=== PATIENT | female | born 1990 | race Caucasian/White ===

== ENCOUNTER 2017-12-11 12:21 | Day surgery (SDC) | END 2017-12-11 18:10 | disposition home or self-care (01) ==

== ENCOUNTER 2017-12-12 15:37 | Observation (INO) | END 2017-12-14 19:20 | disposition home or self-care (01) ==

== ENCOUNTER 2018-04-02 10:23 | Day surgery (SDC) | payer OTHER ==
[2018-04-02] VITALS (22 sets, daily range): BP systolic 89–115; BP diastolic 48–77; PULSE 60–92; RESP 8–24; Ht 160 cm; Wt 51.2 kg
[~2018-04-02] VITALS: Ht 160 cm; Wt 51.2 kg
[~2018-04-02 10:23] MED LIST: CEFAZOLIN 2 GM/50 ML (PMX) 50 ML IVPB ONE; LEVO750T25 PO; OXYC-209 PO; OXYC-279 PO; SOD CHLORIDE 0.9% 1,000 ML IV SCH
[2018-04-02] MEDS ORDERED: ACET-141 PO (10:54)
--- NOTE | 2018-04-02 13:27 | PREAC ---
Date/Time of Note Date/Time of Note DATE: 04/02/18 TIME: 13: Anesthesia Eval and Record Evaluation Time Pre-Procedure Interview DATE: 04/02/18 TIME: 13: Age 28 Sex female NPO: 8 hrs Preoperative diagnosis incisional hernia Planned procedure laproscopic insicional hernia repair Past Medical History Past Medical History: Includes Hepatic: Other ( alcohol syndrome ) Surgery & Anesthesia Issues No known issue Meds Anticoagulation: No Beta Hemal within 24 hr: No Reason Beta Hemal not given: Pt. not on B-Hemal Reported Medications Acetaminophen* (Acetaminophen*) 500 MG Extra Strength Tablet, 500 MG PO Q4H PRN for PAIN AND OR ELEVATED TEMP, TAB 04/02/18 Discontinued Scripts Levofloxacin* (Levaquin*) 750 Mg Tablet, 750 MG PO DAILY for 5 Days, TAB Prov:ANETA GLOVER 12/14/17 Oxycodone HCl/Acetaminophen (Percocet 5-325 mg Tablet) 1 Each Tablet, 1 EACH PO Q8, #10 TAB Prov:ANETA GLOVER 12/14/17 Oxycodone HCl/Acetaminophen (Percocet 10-325 mg Tablet) 1 Each Tablet, 1 EACH PO Q6 PRN for PAIN LEVEL 6-10, #20 TAB Prov:DAVE IVEY MD 12/12/17 Current Medications Sodium Chloride 1,000 ml @ 75 mls/hr [id number] IV Last administered on 04/02/18at 09:00; Admin Dose 75 MLS/HR; Start 04/02/18 at 09:00; Stop 04/02/18 at 22:19 Meds reviewed: Yes Allergies Coded Allergies: No Known Drug Allergy (Unverified Allergy, Unknown, 12/12/17) Allergies Reviewed: Yes Labs/Studies Labs Reviewed: Reviewed by anesthesiologist test: Negative Pre-procedure Exam Last vitals Vital Signs Date Temp Pulse Resp B/P (MAP) Pulse Ox O2 O2 Flow FiO2 Time Delivery Rate 04/02/18 98.4 74 18 110/73 100 Room Air 10:50 (85) Airway: Adequate mouth opening, Adequate thyromental dist Mallampati: Mallampati I Teeth: Normal Lung: Normal Heart: Normal ASA Physical Status ASA physical status: 2 Emergency: None Pre-operative Attestations Prior to commencing anesthesia and surgery, the patient was re-evaluated, there was verification of: *The patient's identity *The results of appropriate recent lab work and preoperative vital signs *The above evaluation not changing prior to induction *Anesthetic plan, risk benefits, alternative and complications discussed with patient/family; questions answered; patient/family understands, accepts and wishes to proceed. GEORGE PRESSLEY DO Apr 02, 2018 13:27
[2018-04-02] MEDS ORDERED: MEPERIDINE 25 MG INJ IV PRN (13:30)
[2018-04-02] MEDS ORDERED: ONDANSETRON 4 MG INJ IV PRN (13:30)
[2018-04-02] MEDS ORDERED: HYDROmorphONE 1 MG/5 ML IV SYRINGE IV PRN (13:30)
[2018-04-02] MEDS ORDERED: MIDAZOLAM 1 MG/ML 2 ML INJ ONE (13:44)
[2018-04-02] MEDS ORDERED: POLYMYXIN/BACITRACIN 1L IRRIG ONE (13:44)
[2018-04-02] MEDS ORDERED: FENTAnyl 50 MCG/ML VIAL ONE ×2 (13:47→14:46)
[2018-04-02] MEDS ORDERED: LIDOCAINE 2% (SDV) 5 ML INJ ONE (13:47)
[2018-04-02] MEDS ORDERED: ROCURONIUM 50 MG INJ ONE (13:47)
[2018-04-02] MEDS ORDERED: PROPOFOL 20 ML ONE (13:47)
[2018-04-02] MEDS ORDERED: ROPIVACAINE 0.5 % 30 ML VIAL ONE (13:53)
[2018-04-02] MEDS ORDERED: DEXAMETHASONE 4 MG/ML 5 ML INJ ONE (14:05)
[2018-04-02] MEDS ORDERED: ONDANSETRON 4 MG INJ ONE (14:05)
[2018-04-02] MEDS ORDERED: FAMOTIDINE 20 MG INJ ONE (14:05)
[2018-04-02] MEDS ORDERED: CEFAZOLIN 1 GM INJ ONE (14:05)
[2018-04-02] MEDS ORDERED: NEOSTIGMINE 3 MG/3 ML SYRINGE ONE (14:31)
[2018-04-02] MEDS ORDERED: GLYCOPYRROLATE 0.4 MG INJ ONE (14:31)
--- NOTE | 2018-04-02 14:40 | OPR ---
Date/Time of Note Date/Time of Note DATE: 04/02/18 TIME: 14:35 Operative Report Procedure Date: Apr 02, 2018 Preoperative Diagnosis incarcerated incisional hernia and ventral hernia Postoperative Diagnosis same Operation/Procedure Performed 1. laparoscopic incarcerated incisional hernia repair cpt code 62943 2. laparoscopic ventral hernia repair cpt code 90509 3. implantation of mesh ventralight ST 15 x 20 cm cpt code 33992 4. laparoscopic lysis of adhesions Surgeon see signature line Electrical Solderer none Anesthesia Type: general Estimated Blood Loss: 0 - 10 ml's Transfusion none Specimen none Grafts/Implants none Complications none Pt Condition Post Procedure: stable Indications This is a 28-year-old female with symptomatic incarcerated incisional hernia. She requests surgical repair. Risks alternatives benefits and percent were discussed the patient. Patient expresses understanding and consents to the operation. Procedure Description Patient is taken to the OR and prepped and draped in usual sterile fashion. Surgical timeout was performed. IV antibiotics were given. Left upper quadrant 5 mm transverse incision was made with a 15 blade. Using a 5 mm optical trocar optical entry is performed. Pneumoperitoneum is established. Left flank 12 mm optical trochars placed under direct position. Left lower quadrant 5 mm optical trocar was placed under direct visualization. Upon initial inspection there is incarcerated hernia contents. Laparoscopic lysis of adhesions was performed to allow mobilization of the hernia contents. The hernia contents were then fully reduced. The hernia defect is identified. This hernia defect is then closed primarily with interrupted #1 Vicryl using Endo Close and laparoscopic techniques. After multiple sutures were placed another hernia defect in the umbilicus and the ventral area is identified. This hernia defect is small and was repaired with mesh. Underlay mesh with ventral light ST 15 x 620 cm was secured in place with secure strap with approximate 4-5 cm coverage in all directions. There is good hemostasis. All ports were removed under direct position. Skin was closed using skin jeffrey. A tap block was provided by the anesthesiologist. Dry dressings were applied. Marcelina GUTIERREZ Apr 02, 2018 14:40
--- NOTE | 2018-04-02 14:55 | PAC ---
Date/Time of Note Date/Time of Note DATE: 04/02/18 TIME: 14:54 Post-Anesthesia Notes Post-Anesthesia Note Last documented vital signs Vital Signs Date Temp Pulse Resp B/P (MAP) Pulse Ox O2 O2 Flow FiO2 Time Delivery Rate 04/02/18 99 82 18 132/62 100 Room Air 1455 Activity: WNL Respiratory function: WNL Cardiovascular function: WNL Mental status: Baseline Pain reasonably controlled: Yes Hydration appropriate: Yes Nausea/Vomiting absent: Yes GEORGE PRESSLEY DO Apr 02, 2018 14:55
[2018-04-02] MEDS ORDERED: HYDROCODONE/APAP (5/325) TAB PO ONE (15:00)
[2018-04-02] MEDS: HYDROmorphONE 1 MG/5 ML IV SYRINGE IV PRN ×2 (15:02→15:10)
[2018-04-02] MEDS ORDERED: morphine 2 MG INJ IV PRN (17:30)
[2018-04-02] MEDS: HYDROCODONE/APAP (5/325) TAB PO PRN (22:20)
[2018-04-03] VITALS (7 sets, daily range): BP systolic 89–98; BP diastolic 52–61; PULSE 55–88; RESP 18
[2018-04-03] MEDS: HYDROCODONE/APAP (5/325) TAB PO PRN ×4 (05:10→22:29)
[2018-04-03] MEDS ORDERED: SODIUM CHLORIDE 0.45% 500 ML BAG IV* ONE (08:30)
--- NOTE | 2018-04-03 13:44 | PN ---
Date/Time of Note Date/Time of Note DATE: 04/03/18 TIME: 13:43 Assessment/Plan VTE Prophylaxis Risk score (from Nsg)>0 risk: 1 SCD applied (from Nsg): No SCD contraindicated: other Pharmacological prophylaxis: other Lines/Catheters IV Catheter Type (from Nrsg): Saline Lock Assessment/Plan Assessment/Plan s/p lap ventral hernia repair with mesh with pain issues continue care and change to dilaudid Results 24hrs Laboratory Tests Test 04/03/18 07:16 Lab Scanned Report LAB Subjective 24 Hr Interval Summary Free Text/Dictation pain issues will need to stay at least another day Exam/Review of Systems Exam Vitals Vital Signs Date Temp Pulse Resp B/P (MAP) Pulse Ox O2 O2 Flow FiO2 Time Delivery Rate 04/03/18 98.6 55 18 91/61 (71) 98 Room Air 08:07 04/02/18 3.0 14:59 Intake and Output 04/02/18 04/02/18 04/03/18 1515:00 23:00 07:00 IntakeIntake Total 1500 ml 100 ml 120 ml OutputOutput Total 3 ml BalanceBalance 1497 ml 100 ml 120 ml Exam c/d/i Results Results 24hrs Laboratory Tests Test 04/03/18 07:16 Lab Scanned Report LAB Medications Medication Current Medications Morphine Sulfate (morphine) 2 mg Q2H PRN IV SEVERE PAIN LEVEL 7-10; Start 04/02/18 at 17:30 Acetaminophen/ Hydrocodone Bitart ([place] (5/325)) 1 tab Q4H PRN PO MODERATE PAIN LEVEL 4-6 Last administered on 04/03/18at 11:39; Admin Dose 1 TAB; Start 04/02/18 at 17:30 Marcelina GUTIERREZ Apr 03, 2018 13:44
[2018-04-03] MEDS: NS + KCL 20 MEQ 1,000 ML IV SCH ×2 (14:00→18:06)
[2018-04-03] MEDS ORDERED: HYDROmorphONE 0.5 MG/0.5 ML SYG IV PRN (14:00)
[2018-04-03] MEDS ORDERED: ACETAMINOPHEN 500 MG TAB PO PRN (16:00)
[2018-04-03] MEDS ORDERED: ONDANSETRON 4 MG INJ IV PRN (17:30)
--- NOTE | 2018-04-03 17:51 | HP ---
DATE OF ADMISSION: 04/02/2018 CHIEF COMPLAINT AND HISTORY OF PRESENT ILLNESS: The patient is a 28-year-old female well known to me . The patient has alcohol syndrome and was seen by me back in 11/2017 when she was admitted fo r elective laparoscopic cholecystectomy by Dr. Rowley. The patient was doing fine; however developed in carcerated incisional hernia and ventral hernia. The patient was brought into hospital yesterday and underwent surgical repair due to symptomatic incarcerated incisional hernia. The patient postoperat ively has significant pain; therefore the patient is being admitted for further evaluation and manage ment. The patient denies any chest pain. No reported leg pain. No reported headache, dizziness, sy ncope. No history of fever or chills. No history of any vomiting postoperatively. REVIEW OF SYSTEMS: Other than postoperative pain, rest of the systems is unremarkable. 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 ALLERGIES: NONE. PAST SURGICAL HISTORY: As stated above. The patient is status post laparoscopic cholecystectomy. SOCIAL HISTORY: No smoking, no alcohol. FAMILY HISTORY: Noncontributory. PHYSICAL EXAMINATION: GENERAL: Revealed the patient to be awake, alert, fairly oriented. VITAL SIGNS: Temperature 98.6, pulse 55, respiration 18, blood pressure 91/61, asymptomatic, room ai r O2 sat 98%. HEENT: No eye discharge or redness. NECK: No mass. Oropharynx is clear. CHEST: Fairly clear. CARDIOVASCULAR: S1, S2 normal. No murmur. ABDOMEN: The patient is status post incisional hernia repair. She does have postoperative tendernes s. EXTREMITIES: No edema. NEUROLOGIC: The patient is awake, alert, oriented with no gross focal deficit. LABORATORY DATA: Pending. IMPRESSION: 1. Incarcerated incisional hernia and ventral hernia status post laparoscopic incarcerated incisiona l hernia repair as well as laparoscopic ventral hernia repair. 2. alcohol syndrome. 3. Status post laparoscopic cholecystectomy. PLAN: The patient will be admitted on medical floor. The patient will be started on clear liquid di et, will be started on Tylenol, IV Dilaudid and Sarles for pain control. We will use SCD for DVT prop hylaxis. We will add Zofran for nausea, vomiting. Further recommendation will depend on the [facility] l course and recommendation from Dr. Rowley. Dictated By: ANNA DOMINGUEZ MD AB/NTS Conf#: [id number] DID#: [id number] CC: ANSHUL ROWLEY MD;*EndCC*
[2018-04-04 02:18] VITALS: BP 93/53; PULSE 83; RESP 18
[2018-04-04] MEDS: HYDROCODONE/APAP (5/325) TAB PO PRN ×2 (03:37→15:11)
[2018-04-04] MEDS: NS + KCL 20 MEQ 1,000 ML IV SCH ×2 (03:37→13:49)
[2018-04-04 07:30] VITALS: BP 92/50; PULSE 96; RESP 16
[2018-04-04 14:15] VITALS: BP 100/59; PULSE 86; RESP 16
[2018-04-04] MEDS ORDERED: HYDR-3601 PO (15:50)
--- NOTE | 2018-04-04 23:09 | DS ---
Date/Time of Note Date/Time of Note DATE: 04/04/18 TIME: 23:07 Discharge Summary Admission/Discharge Info Admit Date/Time Apr 02, 2018 at 17:11 Discharge Date/Time Apr 04, 2018 at 18:10 Patient Condition: Stable Hx of Present Illness The patient is a 28-year-old female well known to me. The patient has alcohol syndrome and was seen by me back in 11/2017 when she was admitted for elective laparoscopic cholecystectomy by Dr. Rowley. The patient was doing fine; however developed incarcerated incisional hernia and ventral hernia. The patient was brought into hospital yesterday and underwent surgical repair due to symptomatic incarcerated incisional hernia. The patient postoperatively has significant pain; therefore the patient is being admitted for further evaluation and management. The patient denies any chest pain. No reported leg pain. No reported headache, dizziness, syncope. No history of fever or chills. No history of any vomiting postoperatively. Hospital Course 1. Incarcerated incisional hernia and ventral hernia status post laparoscopic incarcerated incisional hernia repair as well as laparoscopic ventral hernia repair by Dr Rowley. 2. alcohol syndrome. 3. Status post laparoscopic cholecystectomy. Home Meds Active Scripts Hydrocodone Bit-Acetaminophen (Hydrocodone Bit-APAP) 5-325MG Tablet, 1 TAB PO Q4H PRN for MODERATE PAIN LEVEL 4-6, #30 TAB Prov:CARINE GUEVARA 04/04/18 Reported Medications Acetaminophen* (Acetaminophen*) 500 MG Extra Strength Tablet, 500 MG PO Q4H PRN for PAIN AND OR ELEVATED TEMP, TAB 04/02/18 Discontinued Scripts Levofloxacin* (Levaquin*) 750 Mg Tablet, 750 MG PO DAILY for 5 Days, TAB Prov:ANETA GLOVER 12/14/17 Oxycodone HCl/Acetaminophen (Percocet 5-325 mg Tablet) 1 Each Tablet, 1 EACH PO Q8, #10 TAB Prov:ANETA GLOVER 12/14/17 Oxycodone HCl/Acetaminophen (Percocet 10-325 mg Tablet) 1 Each Tablet, 1 EACH PO Q6 PRN for PAIN LEVEL 6-10, #20 TAB Prov:DAVE IVEY MD 12/12/17 Follow-up Plan Follow-up with Dr. Rowley in 2 weeks. Primary Care Provider Not On Staff Doctor Time spent on discharge: > 30 minutes Pending Labs Laboratory Tests Test 04/04/18 06:10 White Blood Count 7.4 10^3/ul (4.8-10.8) Red Blood Count 3.38 10^6/ul (4.20-5.40) Hemoglobin 11.2 g/dl (12.0-16.0) Hematocrit 33.0 % (37.0-47.0) Mean Corpuscular Volume 97.6 fl (82.0-101.0) Mean Corpuscular Hemoglobin 33.1 pg (29.0-33.0) Mean Corpuscular Hemoglobin Concent 33.9 g/dl (32.0-37.0) Red Cell Distribution Width 12.0 % (11.5-14.5) Platelet Count 177 10^3/UL (140-415) Mean Platelet Volume 10.1 fl (7.4-10.4) Immature Granulocytes % 0.400 % (0.001-0.429) Neutrophils % 74.6 % (39.0-77.0) Lymphocytes % 13.3 % (15.0-51.0) Monocytes % 9.9 % (0.0-11.0) Eosinophils % 1.4 % (0.0-7.0) Basophils % 0.4 % (0.0-2.0) Nucleated Red Blood Cells % 0.0 /100WBC (0.0-0.0) Immature Granulocytes # 0.030 10^3/ul (0.0-0.031) Neutrophils # 5.5 10^3/ul (1.6-7.5) Lymphocytes # 1.0 10^3/ul (0.8-2.9) Monocytes # 0.7 10^3/ul (0.3-0.9) Eosinophils # 0.1 10^3/ul (0.0-0.5) Basophils # 0.0 10^3/ul (0.0-0.1) Nucleated Red Blood Cells # 0.0 10^3/ul (0.0-0.0) Sodium Level 140 mmol/L (135-144) Potassium Level 3.7 mmol/L (3.5-5.1) Chloride Level 104 mmol/L (97-110) Carbon Dioxide Level 27 mmol/L (21-31) Anion Gap 9 (5-13) Blood Urea Nitrogen 9 mg/dl (7-20) Creatinine 0.39 mg/dl (0.44-1.00) Est Glomerular Filtrat Rate mL/min > 60 mL/min (>60) Glucose Level 94 mg/dl (70-220) Calcium Level 7.8 mg/dl (8.4-10.2) Total Bilirubin 0.1 mg/dl (0.2-1.3) Direct Bilirubin 0.00 mg/dl (0.00-0.20) Indirect Bilirubin 0.1 mg/dl (0-1.1) Aspartate Amino Transf (AST/SGOT) 47 IU/L (15-46) Alanine Aminotransferase (ALT/SGPT) 78 IU/L (13-69) Alkaline Phosphatase 44 IU/L (42-121) Total Protein 6.1 g/dl (6.1-8.1) Albumin 3.2 g/dl (3.3-4.9) Globulin 2.90 g/dl (1.3-3.2) Albumin/Globulin Ratio 1.10 CARINE GUEVARA Apr 04, 2018 23:09
== END 2018-04-04 18:10 | disposition home or self-care (01) ==
LOC: SDS 10:23 → REC 17:11 → UNDOADMIN 17:11 → SDS 17:11 → REC 18:10 → PP2 18:10 → UNDODISIN 04-04 18:10 → SDS 04-04 18:10
PROVIDERS: ATTEND Surgery
DX: G89.18 Other acute postprocedural pain (principal); K43.0 Incisional hernia with obstruction, without gangrene; Q86.0 Fetal alcohol syndrome (dysmorphic)
CPT/HCPCS: 49655; 80053; 85025; C1781; J0690; J1100; J1170; J2175; J2250; J2405; J2710; J2795; J3010; J3480; Z7512; Z7610